=== PATIENT | female | born 2000 | race Two or more races ===

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

== ENCOUNTER 2022-05-29 15:09 | Outpatient (CLI) | payer OTHER ==
[~2022-05-29 15:09] MED LIST: NYSTATIN-TRIAMC15 G1 TOP; PRENA1 TRUE CO1 EACH; TERCONAZOLE45 GM VAG
== END 2022-05-29 16:34 | disposition home or self-care (01) ==
LOC: PRENATAL 15:09
PROVIDERS: ATTEND Obstetrics & Gynecology Maternal & Fetal Medicine
DX: O36.80X0 Pregnancy with inconclusive fetal viability, not applicable or unspecified (principal); O34.219 Maternal care for unspecified type scar from previous cesarean delivery; Z3A.13 13 weeks gestation of pregnancy

== ENCOUNTER 2022-07-18 15:42 | Outpatient (CLI) | payer OTHER | END 2022-07-18 16:34 | disposition home or self-care (01) | LOC: PRENATAL 15:42 | PROVIDERS: ATTEND Obstetrics & Gynecology Maternal & Fetal Medicine | DX: O35.9XX0 Maternal care for (suspected) fetal abnormality and damage, unspecified, not applicable or unspecified (principal); O34.219 Maternal care for unspecified type scar from previous cesarean delivery; O35.3XX0 Maternal care for (suspected) damage to fetus from viral disease in mother, not applicable or unspecified; Z14.8 Genetic carrier of other disease; Z3A.20 20 weeks gestation of pregnancy ==

== ENCOUNTER 2022-10-12 15:05 | Outpatient (CLI) | payer OTHER | END 2022-10-12 16:40 | disposition home or self-care (01) | LOC: PRENATAL 15:05 | PROVIDERS: ATTEND Obstetrics & Gynecology Maternal & Fetal Medicine | DX: O26.849 Uterine size-date discrepancy, unspecified trimester (principal); O36.8199 Decreased fetal movements, unspecified trimester, other fetus; O24.419 Gestational diabetes mellitus in pregnancy, unspecified control; Z3A.32 32 weeks gestation of pregnancy ==